=== PATIENT | male | born 2000 | race African-American/Black ===

== ENCOUNTER 2023-11-07 08:57 | Outpatient (CLI) | payer OTHER, SELFPAY | END 2023-11-07 08:58 | disposition home or self-care (01) | LOC: ANHAUDIO 08:57 | PROVIDERS: PCP Nurse Practitioner Family | DX: H91.90 Unspecified hearing loss, unspecified ear (principal); F84.0 Autistic disorder | CPT/HCPCS: 92557; 92567 ==